=== PATIENT | female | born 2000 | race Caucasian/White ===

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

== ENCOUNTER 2024-02-27 11:12 | Outpatient (CLI) | payer OTHER | END 2024-02-27 11:13 | disposition home or self-care (01) | LOC: BICULT 11:12 | PROVIDERS: ATTEND Nurse Practitioner Women's Health | DX: D24.1 Benign neoplasm of right breast (principal) ==